=== PATIENT | female | born 1965 | race Caucasian/White ===

== ENCOUNTER 2020-02-10 15:37 | Emergency (ER) | payer MEDICAID ==
[~2020-02-10] VITALS: Ht 162.6 cm; Wt 50.5 kg
[2020-02-10] MEDS ORDERED: ONDANSETRON ODT 4 MG PO ONE (16:00)
[2020-02-10] MEDS ORDERED: LORazepam 1MG TABLET PO ONE (16:00)
[2020-02-10] MEDS ORDERED: ONDANSETRON ODT 4 MG ONE (16:04)
[2020-02-10] MEDS ORDERED: LORazepam 1MG TABLET ONE (16:05)
[2020-02-10 16:26] LABS: ANION GAP 8 mmol/L (5-15); CALCIUM 10.2 mg/dL (8.5-10.1); CHLORIDE 105 mmol/L (98-107); CREATININE 0.77 mg/dL (0.55-1.02)
[2020-02-10] MEDS ORDERED: PROMETHAZINE 25 MG/ML, 1ML ONE (16:28)
[2020-02-10 16:42] LABS: BASOPHILS # (AUTO) 0.04 x10^3/uL (0-0.1); BASOPHILS % (AUTO) 1 % (0-1); EOSINOPHILS # (AUTO) 0.16 x10^3/uL (0-0.4); EOSINOPHILS % (AUTO) 2 % (1-7); LYMPHOCYTES # (AUTO) 3.24 x10^3/uL (1-3.4); LYMPHOCYTES % (AUTO) 36 % (22-44); MD NO; MEAN CORPUSCULAR HEMOGLOBIN 29.5 pg (27.0-34.8); MEAN CORPUSCULAR HGB CONC 32.5 g/dL (32.4-35.8); MEAN CORPUSCULAR VOLUME 90.8 fL (80-100); MEAN PLATELET VOLUME 8.6 fL (7.4-10.4); MONOCYTES # (AUTO) 0.69 x10^3/uL (0.2-0.8); MONOCYTES % (AUTO) 8 % (2-9); NEUTROPHILS # (AUTO) 4.75 x10^3/uL (1.8-6.8); NEUTROPHILS % (AUTO) 54 % (42-75); PLATELET COUNT 287 x10^3/uL (130-400); RED BLOOD COUNT 5.72 x10^6/uL (3.82-5.3); RED CELL DISTRIBUTION WIDTH 13.1 % (9.6-15.2)
--- NOTE | 2020-02-10 16:42 | NUR ---
in room to medicate pt. pt given mask due to loss of previous. pt very anxious and unable to sit still. pt states "palomo is taking all the drugs out of her body." nibp and o2 monitoring in place.
[2020-02-10] MEDS ORDERED: PROMETHAZINE 25 MG/ML, 1ML IM ONE (17:00)
[2020-02-10] MEDS ORDERED: DIPHENHYDRAMINE 25 MG CAPSULE PO ONE (17:00)
[2020-02-10] MEDS ORDERED: METOCLOPRAMIDE 5 MG/ML, 2ML IVPush ONE (17:00)
[2020-02-10] MEDS ORDERED: HALOPERIDOL 5 MG/ML IV ONE (17:00)
--- NOTE | 2020-02-10 17:06 | NUR ---
pt placed on cardiac monitoring
[2020-02-10 17:38] VITALS: BP 207/108
--- NOTE | 2020-02-10 18:07 | NUR ---
Patient given discharge instructions and they have confirmed that they understand the instructions. Patient ambulatory with steady gait.
== END 2020-02-10 18:08 ==
LOC: ED 18:02
DX: F12.10 Cannabis abuse, uncomplicated (principal); F15.10 Other stimulant abuse, uncomplicated; R11.2 Nausea with vomiting, unspecified; I10 Essential (primary) hypertension; R10.84 Generalized abdominal pain; I51.7 Cardiomegaly
CPT/HCPCS: 36415; 80048; 85025; 93005; 96372; 96374; 99284; J1630; J2550; Q0162